=== PATIENT | male | born 1950 | race Caucasian/White ===

== ENCOUNTER → 2017-02-05 | Day surgery (SDC) | payer MEDICARE, OTHER ==
[~2017-02-05] VITALS: Ht 188 cm; Wt 97.0 kg
[~2017-02-05] MED LIST: BYSTOLIC5 MG PO; CELEBREX200 MG PO; COQ-10100 MG PO; CRESTOR10 MG PO; FISH OIL 1,0001 EAC3 PO; LEVOTHROID (S125 MCG PO; NEXIUM40 MG PO; NORVASC5 MG PO; TAMBOCOR100 MG PO; ZANTAC (NON-FO150 MG PO
== END | disposition disaster alternative care site (69) ==
LOC: GPOC 01-30 15:00 → GEND 09:07 → GPOC 15:00
PROC: 0DB38ZX Excision of Lower Esophagus, Via Natural or Artificial Opening Endoscopic, Diagnostic (ICD-10-PCS; principal; 2017-02-05)
DX: K21.9 Gastro-esophageal reflux disease without esophagitis (principal); E03.9 Hypothyroidism, unspecified; I48.91 Unspecified atrial fibrillation; R07.89 Other chest pain; I27.2 Other secondary pulmonary hypertension; I25.10 Atherosclerotic heart disease of native coronary artery without angina pectoris; F17.200 Nicotine dependence, unspecified, uncomplicated; Z79.899 Other long term (current) drug therapy; Z98.890 Other specified postprocedural states
CPT/HCPCS: J2001; J7030